=== PATIENT | male | born 1960 | race Caucasian/White ===

== ENCOUNTER 2018-05-30 05:22 | Inpatient (IN) | payer BC ==
[2018-05-24 10:31] LABS: BASOPHILS % (AUTO) 0.9 % (0-1); EOSINOPHILS # (AUTO) 0.5 X10'3 (0-0.9); EOSINOPHILS % (AUTO) 9.9 % (0-6); LYMPHOCYTES # (AUTO) 1.3 X10'3 (1.1-4.8); LYMPHOCYTES % (AUTO) 23.9 % (21-51); MEAN CORPUSCULAR HEMOGLOBIN 30.4 PG (27.0-31.0); MEAN CORPUSCULAR HGB CONC 34.1 % (33.0-36.5); MEAN CORPUSCULAR VOLUME 89.2 FL (78-98); MEAN PLATELET VOLUME 8.1 FL (7.4-10.4); MONOCYTES # (AUTO) 0.6 X10'3 (0-0.9); MONOCYTES % (AUTO) 11.6 % (2-12); NEUTROPHILS # (AUTO) 2.8 X10'3 (1.8-7.7); NEUTROPHILS % (AUTO) 53.7 % (42-75); PRE OP HEMATOCRIT 40.8 % (42.0-52.0); PRE OP HEMOGLOBIN 13.9 g/dL (14.0-17.9); PRE OP PLATELET COUNT 258 X10'3 (140-440); RED BLOOD COUNT 4.58 X10'6 (4.70-6.10); RED CELL DISTRIBUTION WIDTH 13.8 % (11.5-14.5)
[2018-05-24 10:45] LABS: ALKALINE PHOSPHATASE 31 IU/L (46-116); BLOOD UREA NITROGEN 21 MG/DL (7-18); BUN/CREATININE RATIO 21.2 (5.4-32.0); CHLORIDE 105 MMOL/L (99-107); CREATININE 0.99 MG/DL (0.60-1.10); PRE OP ALT 31 U/L (30-65); PRE OP ANION GAP 9 (8-16); PRE OP AST 17 U/L (10-37); PRE OP BILIRUB, TOTAL 0.4 MG/DL (0.0-1.0); PRE OP GLUCOSE 98 MG/DL (70-104); PRE OP POTASSIUM 4.7 MMOL/L (3.4-5.1); PRE OP SODIUM 140 MMOL/L (135-145); TOTAL CARBON DIOXIDE 25.9 MMOL/L (24-32); TOTAL PROTEIN 7.9 G/DL (6.4-8.2); eGFR 77 ML/MIN
[2018-05-24 10:49] LABS: PRE OP INR 1.1 INR; PRE OP PROTIME 11.2 SECONDS (9.0-12.0)
[~2018-05-30] VITALS: Ht 190.5 cm; Wt 95.6 kg
[2018-05-30] VITALS (21 sets, daily range): BP systolic 110–142; BP diastolic 57–94
[~2018-05-30 05:22] MED LIST: ASPI-1265 PO; DICL-194 PO; FENO145T38 PO; SENN-162 PO; SIMV40TA4 PO; ringers solution, lacted 1,000 ML IV SCH
[2018-05-30] MEDS ORDERED: vancomycin inj 1,500 MG in normal saline 300ml IV soln IV ONE (05:30)
[2018-05-30] MEDS ORDERED: famotidine 20mg tablet PO ONE (05:30)
[2018-05-30] MEDS ORDERED: cefazolin/dext.iso 2gm/50ml 50 ML IV ONE (05:30)
[2018-05-30] MEDS ORDERED: tranexamic acid inj. 1,000 MG in normal saline 100 ML IV ONE (05:30)
[2018-05-30] MEDS ORDERED: ceFAZolin 1000mg inj ONE (06:52)
[2018-05-30] MEDS ORDERED: ROPIVAcaine 0.5% (5mg/ml) 30ml vial ONE (07:13)
[2018-05-30] MEDS ORDERED: cloNIDine hcl/PF 100mcg/ml inj ONE (07:13)
[2018-05-30] MEDS ORDERED: tetracaine 1% (10mg/ml) pres. free inj. ONE (07:13)
[2018-05-30] MEDS ORDERED: propofol inj 20 ML IV ONE ×2 (07:15→07:16)
[2018-05-30] MEDS ORDERED: morphine /PF 1mg/ml 10ml inj. ONE (07:15)
[2018-05-30] MEDS ORDERED: MIDAZolam 1mg/ml 10ml vial ONE (07:15)
[2018-05-30] MEDS ORDERED: fentaNYL/PF 50MCG/1 ML 2ML syringe ONE (07:15)
[2018-05-30] MEDS ORDERED: dexamethasone sod phosphate 4mg/ml inj. ONE (07:16)
[2018-05-30] MEDS ORDERED: ondansetron/PF 4mg/2ml inj ONE (07:16)
[2018-05-30] MEDS ORDERED: ringers solution, lacted 1,000 ML IV SCH ×2 (08:29→11:31)
[2018-05-30] MEDS ORDERED: fentaNYL/PF 50MCG/1 ML 2ML syringe IV PRN ×4 (08:30→11:35)
[2018-05-30] MEDS ORDERED: ondansetron/PF 4mg/2ml inj IV PRN ×5 (08:30→11:35)
[2018-05-30] MEDS ORDERED: labetalol 20mg/4ml (5mg/ml) syringe IV PRN (08:30)
[2018-05-30] MEDS ORDERED: morphine 4 MG/ML inj SYRINge IV PRN ×4 (08:30→11:35)
[2018-05-30] MEDS ORDERED: hydrALAZINE 20mg/ml inj. IV PRN ×2 (08:30→11:35)
[2018-05-30] MEDS ORDERED: diphenhydrAMINE 50 mg/ml inj IV PRN ×2 (08:35→11:35)
--- NOTE | 2018-05-30 10:22 | NUR ---
Received from OR via BED, accompanied by Anesthesiologist DR TAFOYA and report given by Anesthesiologist. PT AWAKE, DENIES PAIN, LEFT KNEE W/DRSG, LEG WRAP, ICE PACK AND YENIFER DRAIN CDI. PT W/SAB AND UNABLE TO MOVE BILAT LE'S. Addendum: 05/30/18 at 1039 by Yisel Sanchez RN Amended: Links added.
[2018-05-30] MEDS ORDERED: bisacodyl 10mg suppository rectal RC PRN (10:25)
[2018-05-30] MEDS ORDERED: magnesium hydroxide 30ml (MOM) UD suspension PO PRN (10:25)
[2018-05-30] MEDS ORDERED: acetaminophen 325mg tablet PO PRN (10:25)
[2018-05-30] MEDS ORDERED: diphenhydrAMINE 25mg capsule PO PRN (10:25)
[2018-05-30] MEDS ORDERED: HYDROmorphone inj. 0.5 MG/0.5 ML DISP.SYRIN IV PRN (10:25)
[2018-05-30] MEDS ORDERED: enalaprilat dihydrate 2.5mg/2ml vial IV PRN (11:35)
--- NOTE | 2018-05-30 11:42 | NUR ---
Report called to receiving nurse. Transferred via BED, 1 BAG OF PT Belongings AND CANE SENT W/PT TO ROOM 4006, RECEIVING RN AT BEDSIDE TO RECEIVE PT, SIDE RAILS UP X 2, CALL LIGHT GIVEN, BLL, FAMILY PRESENT. Special Issues communicated to receiving nurse. YES. Addendum: 05/30/18 at 1151 by Yisel Sanchez RN Amended: Links added.
[2018-05-30] MEDS: diphenhydrAMINE 25mg capsule PO PRN ×2 (11:58→21:34)
[2018-05-30] MEDS: potassium Cl 20mEq in NS 1,000 ML IV SCH (13:22)
[2018-05-30] MEDS: ketorolac trometh. 30mg/ml inj. IV SCH ×2 (13:22→20:09)
[2018-05-30] MEDS ORDERED: TRANEXAMIC ACID IV ONE (13:30)
[2018-05-30] MEDS ORDERED: NORMAL SALINE IV ONE (13:30)
[2018-05-30] MEDS: ceFAZolin 1GM/D5W- ADD-VANTAGE 50 ML IV SCH ×2 (16:32→23:55)
[2018-05-30] MEDS: aspirin 81mg tab.chew PO SCH (16:32)
--- NOTE | 2018-05-30 18:14 | NUR ---
Problems reprioritized. Patient report given, questions answered & plan of care reviewed with Mary Ann Slade RN.
[2018-05-30] MEDS ORDERED: vancomycin/NS 1 GM ADD-VANTAGE 250 ML IV SCH (20:00)
[2018-05-30] MEDS: sennosides 8.6mg tablet PO SCH (20:09)
[2018-05-31] MEDS: HYDROcodone/acetaminophen 10/325mg tab PO PRN ×5 (00:20→23:17)
[2018-05-31 02:00] VITALS: BP 107/48
[2018-05-31] MEDS: ketorolac trometh. 30mg/ml inj. IV SCH ×2 (02:40→07:10)
[2018-05-31] MEDS: potassium Cl 20mEq in NS 1,000 ML IV SCH ×2 (02:40→16:12)
[2018-05-31 06:00] VITALS: BP 98/55
--- NOTE | 2018-05-31 06:21 | NUR ---
Report given to Jyothi FUCHS.
[2018-05-31 06:28] LABS: BASOPHILS % (AUTO) 0.1 % (0-1); EOSINOPHILS # (AUTO) 0.2 X10'3 (0-0.9); EOSINOPHILS % (AUTO) 1.6 % (0-6); HEMATOCRIT 33.9 % (42.0-52.0); HEMOGLOBIN 11.8 g/dl (14.0-17.9); LYMPHOCYTES # (AUTO) 0.6 X10'3 (1.1-4.8); LYMPHOCYTES % (AUTO) 5.6 % (21-51); MEAN CORPUSCULAR HGB CONC 34.7 g/dL (33.0-36.5); MEAN CORPUSCULAR VOLUME 89.5 FL (78-98); MEAN PLATELET VOLUME 7.9 FL (7.4-10.4); MONOCYTES % (AUTO) 9.1 % (2-12); NEUTROPHILS # (AUTO) 8.7 X10'3 (1.8-7.7); NEUTROPHILS % (AUTO) 83.6 % (42-75); PLATELET COUNT 223 X10'3 (140-440); RED BLOOD COUNT 3.79 X10'6 (4.70-6.10); RED CELL DISTRIBUTION WIDTH 13.7 % (11.5-14.5); WHITE BLOOD COUNT 10.4 X10'3 (4.5-11.0)
[2018-05-31 06:45] LABS: ALANINE AMINOTRANSFERASE 24 U/L (12-78); ALBUMIN/GLOBULIN RATIO 0.9 (1.1-1.5); ALKALINE PHOSPHATASE 24 IU/L (46-116); ANION GAP 8 (8-16); ASPARTATE AMINO TRANSFERASE 14 U/L (10-37); BILIRUBIN,TOTAL 0.3 MG/DL (0.1-1.0); BLOOD UREA NITROGEN 16 MG/DL (7-18); CALCIUM 8.7 MG/DL (8.5-10.1); CHLORIDE 108 MMOL/L (99-107); GLUCOSE 116 MG/DL (70-104); POTASSIUM 4.2 MMOL/L (3.5-5.1); SODIUM 143 MMOL/L (135-145); TOTAL CARBON DIOXIDE 26.9 MMOL/L (24-32); TOTAL PROTEIN 6.3 G/DL (6.4-8.2); eGFR 76 ML/MIN
[2018-05-31] MEDS: aspirin 81mg tab.chew PO SCH ×2 (07:10→17:51)
[2018-05-31 10:00] VITALS: BP 121/61
--- NOTE | 2018-05-31 10:58 | NUR ---
Joint replacement consult: Pt seen by AUBRIE for written/verbal high protein ed. AUBRIE reviewed high protein needs for wound healing, immune strength, high protein foods, and protein supplementation options. AUBRIE contact information provided in case of further questions. Agrees to double meats/eggs TIDWM; AUBRIE d/w dietary. Addendum: 05/31/18 at [address] Amended: Links added.
[2018-05-31 14:00] VITALS: BP 133/65
[2018-05-31 18:00] VITALS: BP 143/68
--- NOTE | 2018-05-31 18:05 | NUR ---
REPORT REC'D FROM JEF LEMUS.
--- NOTE | 2018-05-31 18:25 | NUR ---
Problems reprioritized. Patient report given, questions answered & plan of care reviewed with Charity FUCHS.
[2018-05-31] MEDS: sennosides 8.6mg tablet PO SCH (20:34)
[2018-05-31 22:00] VITALS: BP 118/70
[2018-06-01] MEDS: potassium Cl 20mEq in NS 1,000 ML IV SCH (02:25)
[2018-06-01] MEDS: HYDROcodone/acetaminophen 10/325mg tab PO PRN ×5 (04:07→17:44)
--- NOTE | 2018-06-01 05:22 | NUR ---
PT WAS GIVEN A SECOND NORCO 10 AFTER ONE HOUR, R/T INCREASED PAIN. PT HAS ONLY BEEN REQUESTING ONE UNTIL NOW.
--- NOTE | 2018-06-01 05:57 | NUR ---
REPORT GIVEN TO JEF LEMUS.
[2018-06-01 06:00] VITALS: BP 131/78
[2018-06-01 06:08] LABS: BASOPHILS % (AUTO) 0.5 % (0-1); EOSINOPHILS # (AUTO) 0.2 X10'3 (0-0.9); EOSINOPHILS % (AUTO) 2.9 % (0-6); HEMATOCRIT 33.2 % (42.0-52.0); HEMOGLOBIN 11.1 g/dl (14.0-17.9); LYMPHOCYTES # (AUTO) 1.2 X10'3 (1.1-4.8); LYMPHOCYTES % (AUTO) 18.2 % (21-51); MEAN CORPUSCULAR HEMOGLOBIN 29.9 PG (27.0-31.0); MEAN CORPUSCULAR HGB CONC 33.4 g/dL (33.0-36.5); MEAN CORPUSCULAR VOLUME 89.5 FL (78-98); MEAN PLATELET VOLUME 8.2 FL (7.4-10.4); MONOCYTES # (AUTO) 0.7 X10'3 (0-0.9); MONOCYTES % (AUTO) 10.3 % (2-12); NEUTROPHILS # (AUTO) 4.6 X10'3 (1.8-7.7); NEUTROPHILS % (AUTO) 68.1 % (42-75); PLATELET COUNT 200 X10'3 (140-440); WHITE BLOOD COUNT 6.8 X10'3 (4.5-11.0)
[2018-06-01 06:32] LABS: ALANINE AMINOTRANSFERASE 25 U/L (12-78); ALBUMIN 3.1 G/DL (3.4-5.0); ALBUMIN/GLOBULIN RATIO 0.9 (1.1-1.5); ALKALINE PHOSPHATASE 25 IU/L (46-116); ANION GAP 7 (8-16); ASPARTATE AMINO TRANSFERASE 16 U/L (10-37); BILIRUBIN,TOTAL 0.4 MG/DL (0.1-1.0); BLOOD UREA NITROGEN 15 MG/DL (7-18); BUN/CREATININE RATIO 13.8 (5.4-32.0); CALCIUM 8.2 MG/DL (8.5-10.1); CHLORIDE 107 MMOL/L (99-107); CREATININE 1.09 MG/DL (0.60-1.10); GLUCOSE 92 MG/DL (70-104); POTASSIUM 4.2 MMOL/L (3.5-5.1); SODIUM 143 MMOL/L (135-145); TOTAL CARBON DIOXIDE 29.4 MMOL/L (24-32); TOTAL PROTEIN 6.5 G/DL (6.4-8.2); eGFR 69 ML/MIN
[2018-06-01] MEDS: aspirin 81mg tab.chew PO SCH ×2 (07:45→17:39)
[2018-06-01 10:00] VITALS: BP 136/73
[2018-06-01 18:00] VITALS: BP 148/70
--- NOTE | 2018-06-01 18:06 | NUR ---
Problems reprioritized. Patient report given, questions answered & plan of care reviewed with Robyn FUCHS.
[2018-06-01] MEDS: sennosides 8.6mg tablet PO SCH (21:35)
[2018-06-01 22:00] VITALS: BP 131/69
[2018-06-02] MEDS: HYDROcodone/acetaminophen 10/325mg tab PO PRN ×2 (00:37→05:02)
[2018-06-02 06:00] VITALS: BP 134/69
[2018-06-02] MEDS ORDERED: oxyCODONE/APAP 10/325mg tablet PO PRN ×2 (06:00)
[2018-06-02 06:21] LABS: BASOPHILS % (AUTO) 0.2 % (0-1); EOSINOPHILS # (AUTO) 0.3 X10'3 (0-0.9); EOSINOPHILS % (AUTO) 3.5 % (0-6); HEMATOCRIT 36.8 % (42.0-52.0); HEMOGLOBIN 12.4 g/dl (14.0-17.9); LYMPHOCYTES # (AUTO) 1.2 X10'3 (1.1-4.8); LYMPHOCYTES % (AUTO) 15.8 % (21-51); MEAN CORPUSCULAR HEMOGLOBIN 30.5 PG (27.0-31.0); MEAN CORPUSCULAR HGB CONC 33.8 g/dL (33.0-36.5); MEAN CORPUSCULAR VOLUME 90.1 FL (78-98); MEAN PLATELET VOLUME 8.2 FL (7.4-10.4); MONOCYTES # (AUTO) 0.7 X10'3 (0-0.9); MONOCYTES % (AUTO) 9.6 % (2-12); NEUTROPHILS # (AUTO) 5.3 X10'3 (1.8-7.7); NEUTROPHILS % (AUTO) 70.9 % (42-75); PLATELET COUNT 249 X10'3 (140-440); RED BLOOD COUNT 4.08 X10'6 (4.70-6.10); RED CELL DISTRIBUTION WIDTH 13.9 % (11.5-14.5); WHITE BLOOD COUNT 7.5 X10'3 (4.5-11.0)
[2018-06-02 06:35] LABS: ALANINE AMINOTRANSFERASE 36 U/L (12-78); ALBUMIN 3.4 G/DL (3.4-5.0); ALBUMIN/GLOBULIN RATIO 0.8 (1.1-1.5); ALKALINE PHOSPHATASE 35 IU/L (46-116); ANION GAP 9 (8-16); ASPARTATE AMINO TRANSFERASE 26 U/L (10-37); BILIRUBIN,TOTAL 0.6 MG/DL (0.1-1.0); BLOOD UREA NITROGEN 14 MG/DL (7-18); CALCIUM 9.3 MG/DL (8.5-10.1); CHLORIDE 102 MMOL/L (99-107); CREATININE 1.08 MG/DL (0.60-1.10); GLUCOSE 124 MG/DL (70-104); SODIUM 141 MMOL/L (135-145); TOTAL CARBON DIOXIDE 30.3 MMOL/L (24-32); TOTAL PROTEIN 7.8 G/DL (6.4-8.2); eGFR 70 ML/MIN
--- NOTE | 2018-06-02 07:14 | NUR ---
Patient in room [facility]TH[facility] 4006. I have received report from Mignon FUCHS and had the opportunity to ask questions and assume patient care.
[2018-06-02] MEDS ORDERED: ASPI-1265 PO (07:17)
[2018-06-02] MEDS ORDERED: PER10325T PO (07:17)
[2018-06-02] MEDS: aspirin 81mg tab.chew PO SCH (08:33)
[2018-06-02 10:00] VITALS: BP 149/75
--- NOTE | 2018-06-02 10:30 | NUR ---
Patient discharge to home with all belongings, IV taken out canula intact, patient educated on incision care, follow up appointment and s/s of infections.
== END 2018-06-02 10:29 | disposition home or self-care (01) | DRG 470 ==
LOC: PAS IN 05:22 → EDSTATUS 07:30 → ORTHO 4S 11:45
PROVIDERS: ADMIT Orthopaedic Surgery; ATTEND Orthopaedic Surgery
PROC: 3E0T3BZ Introduction of Anesthetic Agent into Peripheral Nerves and Plexi, Percutaneous Approach (ICD-10-PCS; 2018-05-30)
PROC: 0SRD0J9 Replacement of Left Knee Joint with Synthetic Substitute, Cemented, Open Approach (ICD-10-PCS; principal; 2018-05-30 07:14)
DX: M17.12 Unilateral primary osteoarthritis, left knee (principal); D62 Acute posthemorrhagic anemia; F17.220 Nicotine dependence, chewing tobacco, uncomplicated
CPT/HCPCS: 36415; 80053; 82948; 85025; 85610; 85730; 86885; 86900; 86901; 86920; 87070; 93005; 97110; 97116; 97162; 97530; A6454; A7000; C1713; C1758; C1776; G0378; J0690; J0735; J1100; J1885; J2250; J2274; J2405; J2704; J2795; J3010; J3370; J7030; J7120; Q0163